=== PATIENT | female | born 1990 | race American Indian/Alaskan Native ===

== ENCOUNTER 2017-02-19 15:13 | Emergency (ER) | payer OTHER ==
--- NOTE | 2017-02-19 16:20 | Emergency Department Report ---
ED Abdominal Pain HPI - General Chief Complaint: Urogenital-Female Stated Complaint: ABD PAIN Time Seen by Provider: 02/19/17 16:18 Source: patient Mode of arrival: Ambulatory Limitations: No Limitations - History of Present Illness -: Gradual Context: other (thinks she may be preg but did not do a home preg test) Associated Symptoms: nausea (mild). denies: vomiting, diarrhea, fever, chills, constipation, dysuria, hematemesis, hematochezia, melena, hematuria, anorexia, syncope, other (no vag bleed or dc) - Related Data Previous Rx's Medication Instructions Recorded Last Taken Type Vit-Fe Fumar-FA [ 1 tab PO QDAY #30 tablet 02/19/17 Unknown Rx Vitamin] Allergies Allergy/AdvReac Type Severity Reaction Status Date / Time No Known Allergies Allergy Verified 02/19/17 15:19 ED Review of Systems ROS: Stated complaint: ABD PAIN Other details as noted in HPI Comment: All other systems reviewed and negative Constitutional: no symptoms reported, see HPI Eyes: as per HPI ENT: as per HPI Respiratory: no symptoms reported Cardiovascular: as per HPI Endocrine: no symptoms reported, see HPI, other (breast tenderness) Gastrointestinal: as per HPI, nausea Genitourinary: as per HPI, other (lmp 6-28) Musculoskeletal: as per HPI Skin: as per HPI Neurological: as per HPI Psychiatric: as per HPI Hematological/Lymphatic: as per HPI ED Past Medical Hx - Past Medical History Previous Medical History?: No - Surgical History Past Surgical History?: No - Family History Family history: no significant - Social History Smoking Status: Current Every Day Smoker Substance Use Type: Alcohol, Marijuana - Medications Home Medications: Home Medications Medication Instructions Recorded Confirmed Last Taken Type Vit-Fe Fumar-FA [ 1 tab PO QDAY #30 tablet 02/19/17 Unknown Rx Vitamin] ED Physical Exam - General Limitations: No Limitations General appearance: alert - Head Head exam: Present: atraumatic - Eye Eye exam: Present: normal appearance Pupils: Present: normal accommodation - ENT ENT exam: Present: mucous membranes moist - Neck Neck exam: Present: normal inspection - Respiratory Respiratory exam: Present: normal lung sounds bilaterally - Cardiovascular Cardiovascular Exam: Present: regular rate - GI/Abdominal GI/Abdominal exam: Present: soft, normal bowel sounds. Absent: distended, tenderness, guarding, rebound, rigid, diminished bowel sounds - Rectal Rectal exam: Present: deferred - Extremities Exam Extremities exam: Present: normal inspection, full ROM, normal capillary refill. Absent: tenderness, pedal edema, joint swelling - Back Exam Back exam: Present: normal inspection. Absent: full ROM, tenderness, CVA tenderness (R), CVA tenderness (L) - Neurological Exam Neurological exam: Present: alert, oriented X3, CN II-XII intact, normal gait - Psychiatric Psychiatric exam: Present: normal affect, normal mood - Skin Skin exam: Present: warm, dry, intact, normal color ED Course Vital Signs 02/19/17 15:20 Temperature 98.0 F Pulse Rate 80 Respiratory 17 Rate Blood Pressure 134/98 O2 Sat by Pulse 100 Oximetry - Reevaluation(s) Reevaluation #1: 02/19/17 17:23 to er to see if preg lmp 6-28 no vag bleed or dc breast tender did not take home test this would be first preg no abd tenderness or pain states just little nausea smiling and giddy. taking po ambulatory dc home w obgyn fu edc 4-3 based on lmp ED Medical Decision Making - Lab Data Result diagrams: 02/19/17 16:25 02/19/17 16:25 - Medical Decision Making here bc she thinks she is preg denies taking home test breast tender lmp 6-28 no vag bleed or dc g1- this preg is first not concerned for std would be happy to be preg bf at bedside Critical care attestation.: If time is entered above; I have spent that time in minutes in the direct care of this critically ill patient, excluding procedure time. ED Disposition Clinical Impression: IUP (intrauterine ), incidental Disposition: DC-01 TO HOME OR SELFCARE Is pt being admited?: No Does the pt Need Aspirin: No Condition: Stable Instructions: (ED) Additional Instructions: rest fluids vitamins no drugs or alcohol eat well follow up obgyn Prescriptions: Vit-Fe Fumar-FA [ Vitamin] 1 tab PO QDAY #30 tablet Referrals: PRIMARY CARE, [Primary Care Provider] - 3-5 Days JOCELYNN HOPKINS MD [Staff Physician] - 3-5 Days Time of Disposition: 17:10
[2017-02-19 16:47] LABS: Basophils % (Auto) 0.5 % (0.0-1.8); Eosinophils % (Auto) 1.5 % (0.0-4.3); Hematocrit 40.7 % (30.3-42.9); Hemoglobin 13.5 gm/dl (10.1-14.3); Mean Corpuscular HGB Conc 33 % (30-34); Mean Corpuscular Hemoglobin 31 pg (28-32); Mean Corpuscular Volume 92 fl (79-97); Platelet Count 144 K/mm3 (140-440); Red Cell Distribution Width 13.3 % (13.2-15.2); White Blood Count 8.5 K/mm3 (4.5-11.0)
[2017-02-19 16:56] LABS: Bilirubin,Urine NEG (Negative); Blood,Urine NEG (Negative); Ketones,Urine NEG (Negative); Leukocyte Esterase,Urine NEG (Negative); Mucus,Urine FEW /HPF; Nitrite,Urine NEG (Negative); Protein,Urine <15 mg/dL mg/dL (Negative); Urobilinogen,Urine < 2.0 mg/dL (<2.0); WBC,Urine < 1.0 /HPF (0.0-6.0)
[2017-02-19 16:59] LABS: Anion Gap 16 mmol/L; BUN/Creatinine Ratio 17.14; Blood Urea Nitrogen 12 mg/dL (7-17); Calcium 9.4 mg/dL (8.4-10.2); Carbon Dioxide 25 mmol/L (22-30); Chloride 99.7 mmol/L (98-107); Glucose 81 mg/dL (65-100); Potassium 4.2 mmol/L (3.6-5.0); Sodium 136 mmol/L (137-145)
[2017-02-19 19:42] VITALS: BP 141/75
== END 2017-02-19 17:40 | disposition home or self-care (01) ==
LOC: ED 15:13
DX: Z33.1 Pregnant state, incidental (principal); R10.9 Unspecified abdominal pain; R11.0 Nausea; F17.210 Nicotine dependence, cigarettes, uncomplicated; F12.10 Cannabis abuse, uncomplicated
CPT/HCPCS: 36415; 80048; 81001; 84702; 85025; 99283

== ENCOUNTER 2017-02-28 00:14 | Emergency (ER) | payer SELFPAY ==
[2017-02-28 00:25] VITALS: BP 136/79
[2017-02-28 01:07] LABS: Basophils % (Auto) 0.6 % (0.0-1.8); Eosinophils % (Auto) 1.2 % (0.0-4.3); Hematocrit 43.2 % (30.3-42.9); Hemoglobin 13.9 gm/dl (10.1-14.3); Mean Corpuscular HGB Conc 32 % (30-34); Mean Corpuscular Hemoglobin 30 pg (28-32); Mean Corpuscular Volume 93 fl (79-97); Red Blood Count 4.67 M/mm3 (3.65-5.03); Red Cell Distribution Width 13.5 % (13.2-15.2); White Blood Count 8.4 K/mm3 (4.5-11.0)
[2017-02-28 01:16] LABS: INR 0.94 (0.87-1.13); Platelet Count 161 K/mm3 (140-440)
[2017-02-28 01:19] LABS: Anion Gap 19 mmol/L; BUN/Creatinine Ratio 21.25; Blood Urea Nitrogen 17 mg/dL (7-17); Calcium 9.7 mg/dL (8.4-10.2); Carbon Dioxide 23 mmol/L (22-30); Chloride 99.8 mmol/L (98-107); Glucose 104 mg/dL (65-100); Potassium 4.2 mmol/L (3.6-5.0); Sodium 138 mmol/L (137-145)
[2017-02-28 01:20] LABS: Bilirubin,Urine NEG (Negative); Blood,Urine LG (Negative); Ketones,Urine TR mg/dL (Negative); Leukocyte Esterase,Urine NEG (Negative); Nitrite,Urine NEG (Negative); Urobilinogen,Urine < 2.0 mg/dL (<2.0)
[2017-02-28 01:22] LABS: RBC,Urine > 182.0 /HPF (0.0-6.0); WBC,Urine > 182.0 /HPF (0.0-6.0)
== END 2017-02-28 11:30 | disposition left against medical advice (07) ==
LOC: ED 00:14
DX: N93.9 Abnormal uterine and vaginal bleeding, unspecified (principal); Z53.21 Procedure and treatment not carried out due to patient leaving prior to being seen by health care provider
CPT/HCPCS: 36415; 80048; 81001; 84702; 85025; 85610; 86850; 86900; 86901

== ENCOUNTER 2019-02-20 03:10 | Inpatient (IN) | payer MEDICAID ==
[2019-02-20] MEDS ORDERED: CYTOTEC ONE (03:48)
[2019-02-20] MEDS ORDERED: CYTOTEC VG ONE (04:00)
[2019-02-20] MEDS ORDERED: METHERGINE IM ONE ×2 (04:20→04:28)
--- NOTE | 2019-02-20 04:20 | History and Physical Report ---
History of Present Illness Date of examination: 02/20/19 Date of admission: 02/20/19 03:10 History of present illness: Pt is a 28yo BF EDC 03/03/19; EGA 38 2/7 weeks presents to L&D complaining of SROM @ 0256 followed by RUC's q 2-4 mins. She receieved care at [facility] and care was unremarkable per pt. records are not available and GBS is unknown. Past History Past Medical History: no pertinent history Past Surgical History: no surgical history Family/Genetic History: none Social history: no significant social history, single - Obstetrical History Expected Date of Delivery: 03/03/19 Actual Gestation: 38 Week(s) 3 Day(s) : 3 Medications and Allergies Allergies Allergy/AdvReac Type Severity Reaction Status Date / Time No Known Allergies Allergy Verified 02/19/17 15:19 Home Medications Medication Instructions Recorded Confirmed Last Taken Type Vit-Fe Fumar-FA [ 1 tab PO QDAY #30 tablet 02/19/17 02/20/19 Unknown Rx Vitamin] Review of Systems All systems: negative - Vital Signs Vital signs: Vital Signs Pulse BP 76 117/66 02/20/19 03:56 02/20/19 03:56 Temp Pulse Resp BP Pulse Ox 76 108/59 02/20/19 04:11 02/20/19 04:11 - Physical Exam Breasts: Positive: deferred Cardiovascular: Regular rate Lungs: Positive: Clear to auscultation Abdomen: Positive: normal appearance Genitourinary (Female): Positive: normal external genitalia Uterus: Positive: enlarged Extremities: Positive: normal - Obstetrical FHR: category 1 Uterine Contraction Monitor Mode: External Uterine Contraction Pattern: Regular Uterine Tone Measurement Phase: Contraction Uterine Contraction Intensity: Strong/Firm Results Result Diagrams: 02/20/19 06:05 All other labs normal. Assessment and Plan - Patient Problems (1) 38 weeks gestation of Onset Date: 02/20/19 Current Visit: Yes Status: Acute Plan to address problem: A: IUP @ 38 3/7 weeks in labor Unknown GBS P: Admit to L&D for expectant vaginal delivery Obtain records
--- NOTE | 2019-02-20 04:25 | Procedure Note ---
OB Delivery Note - Delivery Date of Delivery: 02/20/19 Surgeon: CAROLINA KENT Estimated blood loss: 100cc - Vaginal Delivery presentation: vertex Delivery position: OA Intrapartum events: none Delivery induction: none Delivery augmentation: rupture of membranes Delivery monitor: external FHT, external uterine Route of delivery: Delivery placenta: spontaneous Delivery cord: 3 umbilical vessels Episiotomy: none Delivery laceration: none Anesthesia: none Delivery comments: Infant delivered OA - A at 1 minute: 8 at 5 minutes: 9 Gender: Female (2847gms)
[2019-02-20] MEDS ORDERED: PITOCin/NS 20 UNIT/1000ML DRIP 20,000 MILLIUNITS/1,000 ML BAG IV ONE (04:28)
[2019-02-20] MEDS ORDERED: MINERAL OIL PO PRN (04:29)
[2019-02-20] MEDS ORDERED: BRETHINE SUB-Q PRN (04:29)
[2019-02-20] MEDS ORDERED: BRETHINE IVP PRN (04:29)
[2019-02-20] MEDS ORDERED: XYLOCAINE 2% INFILTRATI ONE (04:29)
[2019-02-20] MEDS ORDERED: LACTATED RINGERS 1,000 ML IV SCH (05:00)
[2019-02-20] MEDS ORDERED: PITOCin/NS 30 UNIT/500ML 30 UNITS/500 ML BAG IV SCH (05:00)
[2019-02-20] MEDS ORDERED: PITOCin/NS 20 UNIT/1000ML DRIP 20 UNITS/1,000 ML BAG IV SCH (05:00)
[2019-02-20 06:26] LABS: Hematocrit 37.2 % (30.3-42.9); Hemoglobin 12.4 gm/dl (10.1-14.3); Mean Corpuscular HGB Conc 33 % (30-34); Mean Corpuscular Volume 95 fl (79-97); Platelet Count 111 K/mm3 (140-440); Red Blood Count 3.94 M/mm3 (3.65-5.03); Red Cell Distribution Width 14.6 % (13.2-15.2)
--- NOTE | 2019-02-20 08:56 | Procedure Note ---
OB Delivery Note - Delivery Date of Delivery: 02/20/19 Surgeon: CAROLINA KENT Estimated blood loss: 100cc - Vaginal Delivery presentation: vertex Delivery position: OA Intrapartum events: precipitous labor- <3hr Delivery monitor: none Route of delivery: Delivery placenta: spontaneous Delivery cord: 3 umbilical vessels Episiotomy: none Delivery laceration: none Anesthesia: none Delivery comments: Patient arrived via EMS in active labor. Patient was at presentation. The patient was transferred to a LDR. The pushed to deliver a liveborn female with apgars of 8/9 and weight of 2.85kg. After delivery of head, the shoulders delivered without difficulty. The cord was clamped and cut and the placed on the warmer. The placenta delivered spontaneously intact with a 3VC. EBL 100ml. No lacerations noted. - Infant A at 1 minute: 8 at 5 minutes: 9 Infant Gender: Female (weight 2.85kg)
[2019-02-20] MEDS ORDERED: NORCO 5/325 PO PRN (10:00)
[2019-02-20] MEDS ORDERED: NORCO 5/325 ONE (11:04)
[2019-02-20] MEDS ORDERED: DULCOLAX PR PRN (12:38)
[2019-02-20] MEDS ORDERED: TYLENOL PO PRN (12:38)
[2019-02-20] MEDS ORDERED: BENADRYL PO PRN (12:39)
[2019-02-20] MEDS ORDERED: TUCKS PAD TP PRN (12:41)
[2019-02-20] MEDS ORDERED: LANSINOH TP PRN (12:44)
[2019-02-20] MEDS ORDERED: MILK OF MAGNESIA PO PRN (12:46)
[2019-02-20] MEDS ORDERED: ZOFRAN IV PRN (12:47)
[2019-02-20] MEDS ORDERED: PHENERGAN PO PRN (12:56)
[2019-02-20] MEDS ORDERED: PHENERGAN PR PRN (12:56)
[2019-02-20] MEDS ORDERED: SODIUM CHLORIDE FLUSH SYRINGE 10 ML IV NR (13:00)
[2019-02-20] MEDS: IBUPROFEN PO SCH ×2 (18:09→23:54)
[2019-02-20] MEDS: FEOSOL PO SCH (21:57)
[2019-02-20] MEDS: COLACE PO SCH (21:57)
[2019-02-20 22:28] LABS: Hematocrit 39.1 % (30.3-42.9); Hemoglobin 12.9 gm/dl (10.1-14.3)
[2019-02-21 02:28] LABS: Amphetamine Screen,Urine PRESUMPTIVE NEGATIVE; Benzodiazepines Screen,Urine PRESUMPTIVE NEGATIVE; Cocaine Screen,Urine PRESUMPTIVE NEGATIVE; Methadone Screen,Urine PRESUMPTIVE NEGATIVE; Opiate Screen,Urine PRESUMPTIVE NEGATIVE
[2019-02-21 02:44] LABS: Cannabinoid Screen,Urine PRESUMPTIVE POSITIVE
[2019-02-21] MEDS: IBUPROFEN PO SCH ×4 (05:05→22:59)
[2019-02-21] MEDS ORDERED: M-M-R II VACCINE SUB-Q ONE (06:00)
[2019-02-21] MEDS: FEOSOL PO SCH ×2 (12:48→22:55)
[2019-02-21] MEDS: COLACE PO SCH ×2 (12:49→22:55)
[2019-02-21] MEDS: PRENATAL VITAMIN PO SCH (12:49)
--- NOTE | 2019-02-21 18:06 | Progress Note ---
Assessment and Plan A: PPD#1 s/p at term doing well P: Routine care. Anticipate discharge tomorrow morning per pt request. Subjective - Subjective Date of service: 02/21/19 Principal diagnosis: s/p at term Interval history: Pt without complaints.Requests discharge tomorrow morning. Patient reports: appetite normal, voiding normally, pain well controlled, ambulating normally [place]: doing well Objective - Vital Signs Latest vital signs: Vital Signs Temp Pulse Resp BP BP Pulse Ox 02/21/19 15:28 98.1 F 89 20 113/60 02/21/19 08:25 98.4 F 72 20 109/70 02/21/19 05:05 20 02/20/19 23:55 98.1 F 102 H 20 119/60 97 02/20/19 23:54 18 Intake and Output 02/21/19 02/21/19 02/21/19 06:59 14:59 22:59 Intake Total 120 120 320 Balance 120 120 320 Intake: Oral 120 320 Intake, Free Water 120 Other: Total, Intake Amount 120 320 # Voids Void 1 1 1 - Exam Breasts: Present: deferred Cardiovascular: Present: Regular rate Lungs: Present: Clear to auscultation Abdomen: Present: soft Uterus: Present: fundal height at umbilicus Extremities: Present: normal
--- NOTE | 2019-02-21 20:45 | Discharge Summary ---
Providers - Providers Date of Admission: 02/20/19 03:10 Date of discharge: 02/22/19 Attending physician: CAROLINA KENT 02/21/19 03:54 Consult to Case Management [CONS] Routine Services Needed at Discharge: Master Lay Out Specialist Notified:: no Was contact made?: No Additional Physician Instructions: pt urine drug test is positive for marijuana Primary care physician: CAROLINA KENT Hospitalization Reason for admission: active labor Delivery: Procedure details: Please see delivery note. Episiotomy: none Laceration: none Other procedures: none complications: none Discharge diagnosis: IUP at term delivered baby: female Hospital course: Pt was admitted in active labor and went on to have a spontaneous vaginal delivery which she tolerated well. Her course was uncomplicated and she met discharge criteria on PPD#2. She will follow up in 6 wks in the office. Condition at discharge: Stable Disposition: DC- TO HOME OR SELFCARE - Discharge Diagnoses (1) Term of female Status: Acute (2) Labor, precipitous Status: Acute Plan - Discharge Medications Prescriptions: Ibuprofen [Motrin] 800 mg PO Q8HR PRN #30 tablet PRN Reason: Pain, Moderate (4-6) HYDROcodone/APAP 5-325 [[place] 5/325] 1 each PO Q6HR PRN #15 tablet PRN Reason: Pain - Provider Discharge Summary Activity: routine, no sex for 6 weeks, no heavy lifting 4 weeks, no strenuous exercise Diet: routine Instructions: routine Additional instructions: [] Smoking cessation referral if applicable(refer to patient education folder for contact #) [] Refer to [facility]'s [facility] Booklet Call your doctor immediately for: * Fever > 100.5 * Heavy vaginal bleeding ( >1 pad per hour) * Severe persistent headache * Shortness of breath * Reddened, hot, painful area to leg or breast * Drainage or odor from incision. * Keep incision clean and dry at all times and follow doctor's instructions regarding bathing/showering - Follow up plan Follow up: BENITO BARTON CNM [Advanced Practice Nurse] - 6 Weeks (Please call to schedule your appt ) Forms: [facility] Discharge Summary, Discharge Signature Page
[2019-02-22] MEDS: IBUPROFEN PO SCH ×3 (04:28→11:15)
[2019-02-22] MEDS: PRENATAL VITAMIN PO SCH (11:15)
[2019-02-22] MEDS: FEOSOL PO SCH (11:15)
[2019-02-22] MEDS: COLACE PO SCH (11:15)
[2019-02-22 11:34] VITALS: BP 118/64
== END 2019-02-22 12:30 | disposition home or self-care (01) | DRG 775 ==
LOC: LD 03:10 → OB 08:04
PROVIDERS: ADMIT Obstetrics & Gynecology; ATTEND Obstetrics & Gynecology
PROC: 10E0XZZ Delivery of Products of Conception, External Approach (ICD-10-PCS; principal; 2019-02-20)
DX: O62.3 Precipitate labor (principal); Z37.0 Single live birth; Z3A.38 38 weeks gestation of pregnancy
CPT/HCPCS: 36415; 80307; 85014; 85018; 85027; 86592; 86706; 86762; 86850; 86900; 86901; 87806; G0378; J2210; J2590